=== PATIENT | female | born 1945 | race African-American/Black ===

== ENCOUNTER 2016-06-22 05:22 | Inpatient (IN) ==
[2016-06-03 14:15] LABS: Basophils % 0.7 % (0.0-0.8); Eosinophils # 0.1 10*3/uL (0.0-0.87); Eosinophils % 1.4 % (0.00-10.9); Hematocrit 44.3 VOL% (35.7-47.0); Immature Granulocytes % 0.2 %; Immature Granulocytes Absolute 0.01 #; Lymphocytes # 2.3 10*3/uL (1.4-4.0); Lymphocytes % 39.4 % (21.3-54.2); Mean Corpuscular HGB Conc 31.6 GM/DL (32-36); Mean Corpuscular Hemoglobin 28 PG (27-34); Mean Corpuscular Volume 87.2 FL (87-102); Mean Platelet Volume 11.2 FL (9.6-12.0); Monocytes # 0.4 10*3/uL (0.11-0.8); Monocytes % 7.5 % (1.7-12.7); Neutrophils # 2.9 10*3/uL (1.4-7.4); Neutrophils % 50.8 % (38.7-73.9); Platelet Count 143 10*3/uL (130-400); Red Blood Count 5.08 10*6/uL (3.8-5.5); Red Cell Distribution Width 14.3 % (9.3-17.3); White Blood Count 5.7 10*3/uL (4.5-13.71)
[2016-06-03 14:30] LABS: PT Patient Result 10.5 SECS; Partial Thromboplastin Time 27.3 SECS (0-40)
--- NOTE | 2016-06-03 14:50 | XRay Report ---
XR chest 2V Indication: Preop respiratory evaluation. Chest 2 views: Comparison 08/13/2013. Thoracic aortic tortuosity is stable. Heart size remains normal. Lungs are clear. Degenerative changes thoracic spine are stable. Impression: No acute cardio pulmonary disease. Chronic findings described above. PROCEDURE INTERPRETED AT [facility] DEPARTMENT OF RADIOLOGY Final Report Signed by: Jose C Kessler M.D.
[2016-06-03 14:55] LABS: Albumin 3.9 G/DL (3.4-5.0); Bilirubin,Total 0.4 MG/DL (0.2-1.0); Calcium 11.6 MG/DL (8.5-10.1); Osmolality,Calculated 291.6 MOS/KG (273-304); Total Protein 7.2 G/DL (6.4-8.3)
[2016-06-09 15:55] LABS: Apearance,Urine Slightly Hazy (Clear); Bilirubin,Urine Negative (Negative); Blood, Urine Moderate mg/dL (Negative); Glucose,Urine (UA) Negative (Negative); Ketones,Urine Negative (Negative); Mucus,Urine Occasional /LPF (Occasional); Nitrite,Urine Negative (Negative); Protein,Urine Negative; RBC,Urine 22 /HPF (0-4); Squamous Epithelial Cell,Urine Occasional /HPF (0-10); Urine Color Yellow (Yellow); Urine Urobilinogen < 2.0 EU/DL (0.2-1.0); WBC,Urine 5 /HPF (0-6)
[2016-06-22] MEDS ORDERED: VANCOMYCIN 1,000 MG VIAL ONE (06:23)
[2016-06-22] MEDS ORDERED: SODIUM CHLORIDE 0.9% 100 ML IV ONE (06:23)
[2016-06-22] MEDS ORDERED: ceFAZolin 1,000 MG VIAL ONE (06:23)
--- NOTE | 2016-06-22 06:36 | History and Physical Update ---
History and Physical Update - History and Physical H&P was reviewed, the patient examined and there: are no changes in the patients condition since last H&P was completed.
[2016-06-22] MEDS: LACTATED RINGERS 1,000 ML IV SCH ×3 (06:39→22:08)
[2016-06-22] MEDS ORDERED: VANCOMYCIN INJ 1,000 MG in SODIUM CHLORIDE 0.9% 250 ML IV ONE (06:54)
[2016-06-22] MEDS ORDERED: TRANEXAMIC ACID 1,000 MG/10 ML VIAL IV ONE (06:57)
[2016-06-22] MEDS ORDERED: LIDOCAINE 2% 5 ML VIAL ONE (07:00)
[2016-06-22] MEDS ORDERED: LABETALOL 100 MG/20 ML VIAL IV ONE (07:00)
[2016-06-22] MEDS ORDERED: DEXAMETHASONE 4 MG/1 ML VIAL ONE (07:00)
[2016-06-22] MEDS ORDERED: BACITRACIN OINT 0.9 GM PACK TOP ONE (08:23)
[2016-06-22] MEDS ORDERED: ROPIVACAINE 0.5% 30 ML VIAL ONE (08:42)
[2016-06-22] MEDS ORDERED: oxyCODONE IR 5 MG TABLET PO PRN (08:44)
[2016-06-22] MEDS ORDERED: MORPHINE 2 MG/1 ML SYRINGE IV PRN ×2 (08:44)
--- NOTE | 2016-06-22 08:49 | Operative Note ---
Date of procedure: 06/22/16 Procedure: DIAGNOSIS: Left knee primary osteoarthrosis PROCEDURE: Left total knee arthroplasty (cpt #81176) SURGEON: Gilmar MARKETING SYSTEMS MANAGER: April ANESTHESIA: Spinal with a postoperative femoral nerve block PROCEDURE and FINDINGS: After adequate was induced, the patient's knee was prepped and draped in the usual sterile fashion. The limb was exsanguinated with Esmarch. Tourniquet was inflated to 300 mmHg. A median parapatellar approach was made. Femur was cut using an intramedullary guide and a 4 in 1 cutting jig in 5 degrees of valgus. ACL and menisci were excised. Tibia was cut using intramedullary guide. Patella was cut using freehand technique. Components were trialed. Tibial fin was prepared. Components are cemented in place using Palacos cement and modern cementing techniques. Cement was removed. A 1/8 inch Hemovac drain was placed. The knee was well-balanced and full range of motion with central tracking patella. Deep layers closed with 0-0 Vicryl. Superficial layers were closed with 2-0 and 3-0 Vicryl. Skin was approximated with omar. Bacitracin and a sterile dressing was applied. Patient was transferred to recovery. A postoperative femoral nerve block is anticipated. COMPONENTS: The Gael Persona system was used. 8 CR narrow femur, E natural tibia, 10 mm liner, 35 mm patella TOURNIQUET TIME: 51 minutes Surgeon / Physician: Rahul Schafer Jr. Results - Labs CBC & BMP: 06/03/16 14:06 06/03/16 14:06 Discharge Plan - Discharge Medications No Action Pravastatin [Pravachol] 40 mg PO DAILY Potassium Chloride [K-Tab ER] 20 meq PO DAILY Lisinopril 20 mg PO DAILY Gabapentin Cap/Tab [Neurontin Cap/Tab] 300 mg PO BEDTIME Furosemide Tab [Lasix Tab] 20 mg PO DAILY amLODIPine [Norvasc] 10 mg PO DAILY Cholecalciferol (Vitamin D3) [Vitamin D3] 1,000 unit PO DAILY Levothyroxine Tab [Synthroid Tab] 88 mcg PO DAILY Allopurinol 300 mg PO DAILY - Follow Up or Referral - Forms/Instructions
--- NOTE | 2016-06-22 09:17 | XRay Report ---
XR knee 2V LT Indication: Arthroplasty Comparison: None available Findings: Left knee arthroplasty is been performed. Components alignment and positioning appear within normal limits. No periprosthetic fracture seen. Drain and surgical changes are present on the soft tissues anteriorly. Impression: Left knee arthroplasty, appears within normal limits postoperatively. PROCEDURE INTERPRETED AT [facility] DEPARTMENT OF RADIOLOGY Final Report Signed by: Dr. Leonid Mo
[2016-06-22] MEDS: LEVOTHYROXINE 88 MCG TABLET PO SCH (12:10)
[2016-06-22] MEDS: DOCUSATE SODIUM 100 MG CAPSULE PO SCH ×2 (12:10→21:58)
[2016-06-22] MEDS: FUROSEMIDE 20 MG TABLET PO SCH (12:10)
[2016-06-22] MEDS: amLODIPine 10 MG TABLET PO SCH (12:11)
[2016-06-22] MEDS: LISINOPRIL 20 MG TABLET PO SCH (12:11)
[2016-06-22] MEDS: POTASSIUM CHLORIDE 20 MEQ TABLET PO SCH (12:12)
[2016-06-22] MEDS: KETOROLAC 15 MG/1 ML VIAL IV SCH ×3 (12:12→22:00)
[2016-06-22] MEDS: PRAVASTATIN 40 MG TABLET PO SCH (12:12)
[2016-06-22] MEDS: ALLOPURINOL 300 MG TABLET PO SCH (12:12)
[2016-06-22] MEDS: CHOLECALCIFEROL 1,000 UNIT TABLET PO SCH (12:13)
[2016-06-22] MEDS: ceFAZolin 2,000 MG in PREMIX 1 EACH IV SCH ×2 (14:22→21:58)
[2016-06-22] MEDS: ACETAMINOPHEN 500 MG TABLET PO SCH ×2 (14:22→19:03)
[2016-06-22] MEDS ORDERED: fentaNYL 100 MCG/2 ML VIAL ONE (14:29)
[2016-06-22] MEDS ORDERED: KETAMINE 500 MG/10 ML VIAL ONE (14:29)
[2016-06-22] MEDS ORDERED: MIDAZOLAM 2 MG/2 ML VIAL ONE (14:29)
--- NOTE | 2016-06-22 17:59 | Orthopedic Progress Note ---
Orthopedics - Subjective Interval history: Comfortable post op. She's sitting in chair. NV ok to foot and ankle. continue per protocol. Exam - Constitutional Vitals: Period Temp Pulse Resp BP Sys/Wilson Pulse Ox Last 24 Hr 97 F-98.6 F 55-72 16-20 121-183/76-104 95-99 Results - Labs CBC & BMP: 06/03/16 14:06 06/03/16 14:06
--- NOTE | 2016-06-22 18:47 | Cardiology Consult Note ---
Pernell Kearney Vanessa, RN, am scribing for, and in the presence of, Jose C Guzmán MD 18:47. Assessment and Plan - Time spent with patient Time spent with patient: Greater than 30 minutes (due to assessment, planning, documentation) (1) Status post total knee replacement, left Status: Acute Assessment and plan: Uneventful operation. This is being managed by orthopedic surgery. Current Visit: Yes (2) Abnormal EKG Status: Acute Assessment and plan: Previous EKG with PVC's, PAC's. Will obtain 12 lead EKG in the morning for review. Monitor electrolytes. Current Visit: Yes (3) Hypertension Status: Chronic Assessment and plan: Fairly stable at this time. Amlodipine and lisinopril have been continued post operatively. Some of her hypertension most certainly could be related to pain from surgical site. Current Visit: Yes (4) Hypothyroidism Status: Acute Assessment and plan: Levothyroxine continued postoperatively. Current Visit: Yes (5) Hypercholesterolemia Status: Acute Assessment and plan: Pravastatin has been continued postoperatively. Current Visit: Yes (6) Obesity Status: Acute Current Visit: Yes History of Present Illness - Data of Consult Patient: known to practice within the last 3 years Consult date: 06/22/16 Requesting Physician: Rahul Schafer Jr. - Consult Narrative History of present illness: Ms. Guy is a 71 year old black female routinely followed by me in clinic. PMHx includes HTN, hypothyroidism, hypercholesterolemia, LVH, gout, obesity, osteoarthritis. She was last seen in clinic on June 03 for cardiac clearance prior to left knee surgery. At that time, she did not have any anginal complaint, symptoms, or previous cardiac history. Patient's activity has been limited, she is generally inactive, and she does not exert herself significantly. EKG abnormal and most consistent with PVC's, PAC's, nonspecific ST-T changes, and some LVH. Because of her risk factors for coronary artery disease and abnormal EKG, Lexican stress test completed prior to clearance. Scan revealed normal perfusion with no ST segment changes consistent with ischemia, LV ejection fraction 58% with normal LV global function. Total left knee replacement was carried out earlier this morning. It was uneventful. We have now been consulted postoperatively for cardiac management. Slightly hypertensive prior to surgery and in PACU. Current blood pressure 146/ 92. Heart rate 60's and regular, occasional palpitation per radial pulse. She is awake and alert, only complaint of pain is related to surgical site. Left lower extremity with sterile dressing in place, hemovac noted with serous drainage, extremity with coolant in place. Distal pulses 2+, palpable bilaterally, good capillary refill, and she is able to wiggle toes. No chest pain, shortness of breath, orthopnea, presyncope, or other cardiac complaint. Home medications continued postoperatively include lisinopril, amlodipine, furosemide, pravastatin, and levothyroxine. Receiving Arixtra injections for anticoagulation. CC: Rahul Schafer Jr., - Home Medications and Allergies Home Medications: Home Medications Medication Instructions Recorded Confirmed Type Allopurinol 300 mg PO DAILY 06/03/16 06/22/16 History Cholecalciferol (Vitamin D3) 1,000 unit PO DAILY 06/03/16 06/22/16 History [Vitamin D3] Furosemide Tab [Lasix Tab] 20 mg PO DAILY 06/03/16 06/22/16 History Gabapentin Cap/Tab [Neurontin 300 mg PO BEDTIME 06/03/16 06/22/16 History Cap/Tab] Levothyroxine Tab [Synthroid Tab] 88 mcg PO DAILY 06/03/16 06/22/16 History Lisinopril 20 mg PO DAILY 06/03/16 06/22/16 History Potassium Chloride [K-Tab ER] 20 meq PO DAILY 06/03/16 06/22/16 History Pravastatin [Pravachol] 40 mg PO DAILY 06/03/16 06/22/16 History amLODIPine [Norvasc] 10 mg PO DAILY 06/03/16 06/22/16 History Allergies/Adverse Reactions: Allergies Allergy/AdvReac Type Severity Reaction Status Date / Time No Known Allergies Allergy Verified 06/22/16 06:15 - Constitutional Constitutional: Present: weakness. Absent: anorexia, chills, daytime sleepiness , excessive sweating, fatigue, fever(s), frequent falls, stops breathing during sleep, weight gain, weight loss - EENT Eyes: Absent: blurry vision, loss of vision Ears: Absent: decreased hearing Nose, mouth and throat: Present: sinus pressure. Absent: dysphagia, epistaxis, lip swelling, throat swelling, tongue swelling, vertigo - Cardiovascular Cardiovascular: Absent: chest pain at rest, chest pain with activity, diaphoresis, dyspnea, dyspnea on exertion, edema, radiating jaw, neck or arm pain, lightheadedness, orthopnea, palpitations, PND - Respiratory Respiratory: Absent: cough, dyspnea, hemoptysis, dyspnea on exertion, wheezing, change in phlegm color - Gastrointestinal Gastrointestinal: Absent: abdominal pain, change in bowel habits, dysphagia, melena, nausea, vomiting, jaundice - Genitourinary Genitourinary: Absent: hematuria - Musculoskeletal Musculoskeletal: Present: back pain, limited range of motion - Neurological Neurological: Absent: abnormal speech, dizziness, numbness, syncope, tremor(s) - Psychiatric Psychiatric: Absent: anxiety, depression - Endocrine Endocrine: Absent: cold intolerance, heat intolerance - Hematologic/Lymphatic Hematologic/Lymphatic: Absent: easy bleeding, easy bruising Medical,Surgical,& Family Hx - Medical History Cardio: History of: Hypertension, Cardiovascular Problems (cardiomegaly) No history of: Cardiac Dysrhythmia, CHF, IN Psychological: No history of: Anxiety Disorders Neurology: History of: Peripheral Neuropathy (FEET AND HANDS) No history of: Dementia, Seizures, TIA HEENT: History of: Eye Problem (GLASSES), Dental Problems (UPPER DENTURE), HEENT Problems (SINUSITIS) Endocrine: History of: Dyslipidemia, Thyroid Disorder (hypothyroidism) No history of: Diabetes Mellitus (IDDM), Diabetes Mellitus (NIDDM) Rheumatology: History of;: Gout, Rheumatoid Arthritis Respiratory: No history of: Asthma, COPD, Obstructive Sleep Apnea, Pulmonary Embolism, Pulmonary Hypertension, Pneumonia Renal: No history of: Renal Failure Gastrointestinal: History of: GERD, Polyps (REMOVED) No history of: Hepatitis Musculoskeletal: History of: Back/Neck Problems (NECK AND BACK PAINS), Osteoporosis, Musculoskeletal Problems (LT KNEE OA) Hematology: No history of: Anemia, Blood Transfusion Reaction, Bleeding Problems, Clotting Problems Other: No history of: Cancer - Surgical History Cardiac Surgeries: Patient Denies: Cardiac Catheterization, Carotid Endarterectomy, Internal Defibrillator HEENT Surgeries: Surgical HX of: Thyroid Surgery (PARTIAL THYROIDECTOMY 10 YRS AGO; GOITER REMOVED 30 YRS AGO.) Abdominal Surgeries: Surgical HX of: Colonoscopy (2016) Reproductive Surgeries: Surgical HX of;: Breast Surgery (RT BREAST BX), Tubal Ligation Orthopedic Surgeries: Surgical HX of;: Total Knee Replacement (right knee; now s /p total left knee ) - Family History Family History: Reports;: Family Cancer (BROTHER, 2 SISTERS BREAST, 1 SISTER GI CANCER), Family Diabetes (SISTER), Family Heart Disease (BROTHER), Family Hypertension (SIBLINGS), Family Stroke (MOTHER, 3 SISTERS) - Social History Smoking Status: Never smoker Frequency of Alcohol Use: None Type of Drug Use: None Marital Status: Lives With:: Spouse Functional capacity: uses cane/walker Physical Examination Vital Signs Temp Pulse Resp BP Pulse Ox 98.6 F 69 18 165/92 95 06/22/16 06:16 06/22/16 06:16 06/22/16 06:16 06/22/16 06:16 06/22/16 06:16 General: Present: Appears Well, No Apparent Distress, Other (obese) HEENT: Present: PERRL, Mucus Membranes Moist. Absent: Jaundice, Pallor Neck: Present: Supple Neck, Midline Trachea, No JVD/HJR, No Masses, No Bruit Cardiac: Present: Reg Rate and Rhythm, No Murmur. Absent: Gallop, Tachycardia Lungs: Present: Normal Exam, Clear Ascult./Percussion, Oxygen (2L/NC), No Wheeze , Rales, Rhonchi Neuro: Present: Grossly Intact. Absent: Numbness, Resting Tremor Abdomen: Present: Soft, Active Bowel Sounds, No Masses. Absent: Ascites, Tender , Firm Skin: Absent: Rash, Ulceration Musculoskeletal: Present: Decreased Range of Motion Extremities: Present: No Clubbing, No Cyanosis, No Edema, Normal Upper Extr. Pulses (2+ bilaterally), Normal Lower Extr. Pulses (2+ bilaterally), Capillary Refill (normal) Result/EKG - Labs CBC & BMP: 06/03/16 14:06 06/03/16 14:06 Lab Results: I have reviewed the past 24 hour labs Labs: Laboratory Results - last 24 hr 06/22/16 06:18 Blood Type O POSITIVE Antibody Screen Negative No labs available today. Reviewed blood work from June 03 and UA results from June 09 - Diagnostic Findings Procedure: Chest x-ray: report reviewed by me, image reviewed by me (06/22 no acute cardiopulmonary disease. degenerative changes thoracic spine, stable) - EKG EKG results: interpreted by me EKG shows: sinus rhythm IRamirez John Timothy, MD, personally performed the services described in this documentation, ascribed by Arlet Gimenez RN in my presence, and it is both accurate and complete .
[2016-06-22] MEDS: GABAPENTIN 300 MG CAPSULE PO SCH (21:58)
[2016-06-23] MEDS: LACTATED RINGERS 1,000 ML IV SCH ×2 (00:46→17:39)
[2016-06-23] MEDS: ACETAMINOPHEN 500 MG TABLET PO SCH ×2 (00:46→06:21)
[2016-06-23] MEDS: KETOROLAC 15 MG/1 ML VIAL IV SCH (02:15)
[2016-06-23] MEDS: FONDAPARINUX 2.5 MG/0.5 ML SYRINGE SUBCUT SCH (02:17)
[2016-06-23 06:17] LABS: Basophils % 0.1 % (0.0-0.8); Hematocrit 32.2 VOL% (35.7-47.0); Hemoglobin 10.6 GM/DL (12.0-16.0); Immature Granulocytes % 0.4 %; Immature Granulocytes Absolute 0.04 #; Lymphocytes # 1.7 10*3/uL (1.4-4.0); Lymphocytes % 16.1 % (21.3-54.2); Mean Corpuscular HGB Conc 32.9 GM/DL (32-36); Mean Corpuscular Hemoglobin 28 PG (27-34); Mean Corpuscular Volume 84.1 FL (87-102); Mean Platelet Volume 11.2 FL (9.6-12.0); Monocytes # 1.2 10*3/uL (0.11-0.8); Neutrophils # 7.7 10*3/uL (1.4-7.4); Neutrophils % 72.4 % (38.7-73.9); Platelet Count 197 T/CUMM (130-400); Red Blood Count 3.83 MC/CUMM (3.8-5.5); Red Cell Distribution Width 14.5 % (9.3-17.3); White Blood Count 10.7 T/CUMM (4-12)
[2016-06-23] MEDS: LEVOTHYROXINE 88 MCG TABLET PO SCH (06:20)
--- NOTE | 2016-06-23 06:46 | EKG Report ---
Stationary ECG Study [facility] Test Date: 06/23/2016 6:45:39 AM Pat Name: MADINA NEUMANN Department: Room: 317 Gender: F Project Manager Interior Design: LIO : 1945 Requested by: Jose C Padilla Order Number: [id number] Reading MD: REZA ROLDAN Intervals Ramona Rate: 62 P: 13 IN: 210 QRS: -7 QRSD: 102 T: -14 QT: 368 QTc: 372 Interpretive Statements SINUS RHYTHM WITH MINIMALLY PROLONGED IN INTERVAL VOLTAGE CRITERIA FOR LVH AND REPOLARIZATION ABNORMALITIES Electronically Signed On 06-23-16 12:48:12 PICKLE PUMPER by REZA ROLDAN [email or web address]
[2016-06-23 06:57] LABS: Calcium 10.2 MG/DL (8.5-10.1); Osmolality,Calculated 287.8 MOS/KG (273-304); Potassium 3.6 MMOL/L (3.5-5.1)
[2016-06-23] MEDS ORDERED: ACETAMINOPHEN 325 MG TABLET PO PRN (08:45)
[2016-06-23] MEDS: POTASSIUM CHLORIDE 20 MEQ TABLET PO SCH (09:48)
[2016-06-23] MEDS: DOCUSATE SODIUM 100 MG CAPSULE PO SCH ×2 (09:48→20:05)
[2016-06-23] MEDS: ALLOPURINOL 300 MG TABLET PO SCH (09:49)
[2016-06-23] MEDS: FUROSEMIDE 20 MG TABLET PO SCH (09:49)
[2016-06-23] MEDS: amLODIPine 10 MG TABLET PO SCH (09:49)
[2016-06-23] MEDS: LISINOPRIL 20 MG TABLET PO SCH (09:49)
[2016-06-23] MEDS: CHOLECALCIFEROL 1,000 UNIT TABLET PO SCH (09:49)
[2016-06-23] MEDS: PRAVASTATIN 40 MG TABLET PO SCH (09:49)
--- NOTE | 2016-06-23 11:22 | Cardiology Progress Note ---
Pernell Kearney Vanessa, RN, am scribing for, and in the presence of, Jose C Guzmán MD 11:20. Assessment and Plan - Time spent with patient Time spent with patient: Less than 30 minutes (1) Status post total knee replacement, left Status: Acute Assessment and plan: POD #1. This is being managed by orthopedic surgery. From a cardiac standpoint she's doing well. Current Visit: Yes (2) Abnormal EKG Status: Chronic Assessment and plan: Previous EKG with PVC's, PAC's. Monitor electrolytes. 12 lead EKG obtained this morning reveals sinus rhythm with no acute changes, minimal to no PVC, PAC. This is stable. Current Visit: Yes (3) Hypertension Status: Chronic Assessment and plan: Blood pressures improved today. Continue current medication regimen. Currently pain free. Current Visit: Yes (4) Hypothyroidism Status: Chronic Assessment and plan: Continue levothyroxine. Current Visit: Yes (5) Hypercholesterolemia Status: Chronic Assessment and plan: Continue pravastatin. Current Visit: Yes (6) Obesity Status: Chronic Assessment and plan: Weight loss be a good benefit for the patient in multiple medical issues. Current Visit: Yes Cardiology - PN: Subj Interval history: Post op day #1 s/p total left knee replacemenent. Awake and alert this morning sitting up in chair. No acute distress noted. Denies chest pain, dyspnea, palpitation, presyncope, or other. Left lower leg wrapped with dressing. Hemovac in place. Denies current discomfort at surgical site. Afebrile, blood pressures overall stable with SBP 115-130 mmHg range, pulse 60's and regular. 12 lead EKG this morning revealed no acute change from prior EKG, sinus rhythm, heart rate 62. Generally she continues to do well clinically from her surgery. Labs reviewed: WBC 10.7, H/H 10.6 & 32.2 (decrease from 06/03/16 noted), sodium 144, potassium 3.6, creatinine 0.9, glucose 125 Exam (Progress Note) - Constitutional Vitals: Period Temp Pulse Resp BP Sys/Wilson Pulse Ox Last 24 Hr 97 F-99.5 F 55-72 16-20 108-160/69-97 95-99 Exam: General: Present: Appears Well, No Apparent Distress, Other (obese) HEENT: Present: PERRL, Mucus Membranes Moist. Absent: Jaundice, Pallor Neck: Present: Supple Neck, Midline Trachea, No JVD/HJR, No Masses, No Bruit Cardiac: Present: Reg Rate and Rhythm, No Murmur. Absent: Gallop, Tachycardia Lungs: Present: Normal Exam, Clear Ascult./Percussion, No Wheeze, Rales, Rhonchi anteriorly Neuro: Present: Grossly Intact. Absent: Numbness, Resting Tremor Abdomen: Present: Soft, Active Bowel Sounds, No Masses. Absent: Ascites, Tender , Firm Skin: Present: warm, dry. Absent: Rash, Ulceration, cyanosis, diaphoresis Musculoskeletal: Present: Decreased Range of Motion post left knee surgery Extremities: Present: No Clubbing, No Cyanosis, No Edema, Normal Upper Extr. Pulses (2+ bilaterally), Normal Lower Extr. Pulses (2+ bilaterally), Capillary Refill (normal) Other: left lower extremity with sx dsg intact, hemovac in place Result/EKG - Labs CBC & BMP: 06/23/16 05:25 06/23/16 05:25 Lab Results: I have reviewed the past 24 hour labs Labs: Laboratory Results - last 24 hr 06/23/16 06/23/16 05:25 05:25 WBC 10.7 RBC 3.83 Hgb 10.6 L Hct 32.2 L MCV 84.1 L MCH 28 MCHC 32.9 RDW 14.5 Plt Count 197 MPV 11.2 Neut % (Auto) 72.4 Lymph % (Auto) 16.1 L [place] % (Auto) 11.0 Eos % (Auto) 0.0 Baso % (Auto) 0.1 Neut # (Auto) 7.7 H Lymph # (Auto) 1.7 [place] # (Auto) 1.2 H Eos # (Auto) 0.0 Baso # (Auto) 0.0 Immature Gran % 0.4 Nucleated RBC % 0.0 Immature Gran # 0.04 Nucleated RBCs # 0.00 Sodium 144 Potassium 3.6 Chloride 107 Carbon Dioxide 26 Anion Gap 14.6 BUN 15 Creatinine 0.90 GFR Calculation 84 BUN/Creatinine Ratio 16.00 Glucose 125 H Calculated Osmolality 287.8 Calcium 10.2 H - Impressions Impressions: ECG with sinus rhythm and left ventricular hypertrophy with ST-T and amount consistent with an unchanged from prior ECG. - EKG EKG results: interpreted by me, no acute changes EKG shows: sinus rhythm IRamirez John Timothy, MD, personally performed the services described in this documentation, ascribed by Arlet Gimenez RN in my presence, and it is both accurate and complete .
--- NOTE | 2016-06-23 11:43 | Pathology Report from [facility] ---
ACCESSION # : [id number] PATIENT NAME : Lauren Guy ORDERING DR : TAYO AZEVEDO MD CLINICAL HX: Left knee ostoearthritis POST-OP DX: Same SPECIMEN INFO: Left knee bone and tissue GROSS DESCRIPTION: The specimen is received fresh labeled "LAUREN GUY" consists of multiple fragments of bone, soft tissue, and cartilage measuring 13.0 x 5.5 cm in aggregate. The articular surface are focally degenerative. There is a subchondral eburnation seen. Software Sales Consultant sections are submitted in one cassette. DIAGNOSIS FOR LAUREN GUY: LEFT KNEE BONE AND TISSUE, TOTAL REPLACEMENT: Osteoarthritis. SERVICE DATE: 06/22/2016 REPORT DATE: 06/23/2016 PATHOLOGIST: Can Seay M.D. [facility]ITAL[facility]
[2016-06-23] MEDS: GABAPENTIN 300 MG CAPSULE PO SCH (20:05)
[2016-06-24] MEDS: FONDAPARINUX 2.5 MG/0.5 ML SYRINGE SUBCUT SCH (02:49)
[2016-06-24 05:17] LABS: Basophils % 0.2 % (0.0-0.8); Eosinophils % 0.4 % (0.00-10.9); Hematocrit 33.6 VOL% (35.7-47.0); Hemoglobin 10.8 GM/DL (12.0-16.0); Immature Granulocytes % 0.5 %; Immature Granulocytes Absolute 0.05 #; Lymphocytes # 2.9 10*3/uL (1.4-4.0); Lymphocytes % 30.1 % (21.3-54.2); Mean Corpuscular HGB Conc 32.1 GM/DL (32-36); Mean Corpuscular Hemoglobin 28 PG (27-34); Mean Corpuscular Volume 85.5 FL (87-102); Mean Platelet Volume 10.8 FL (9.6-12.0); Monocytes % 10.2 % (1.7-12.7); Neutrophils # 5.7 10*3/uL (1.4-7.4); Neutrophils % 58.6 % (38.7-73.9); Platelet Count 187 T/CUMM (130-400); Red Blood Count 3.93 MC/CUMM (3.8-5.5); Red Cell Distribution Width 14.4 % (9.3-17.3); White Blood Count 9.7 T/CUMM (4-12)
[2016-06-24] MEDS: LEVOTHYROXINE 88 MCG TABLET PO SCH (06:16)
--- NOTE | 2016-06-24 07:33 | Orthopedic Progress Note ---
Orthopedics - Subjective Interval history: Doing very well today. Knee more sore since block wore off. LLE nv ok. Continue therapy. Swing bed tomorrow. Exam - Constitutional Vitals: Period Temp Pulse Resp BP Sys/Wilson Pulse Ox Last 24 Hr 98.2 F-99.0 F 48-82 18-19 116-163/71-99 95-98 Results - Labs CBC & BMP: 06/24/16 05:04 06/23/16 05:25 Specialty Discharge - Follow Up or Referrals Follow up with: Rahul Schafer Jr., MD [Physician] -
[2016-06-24] MEDS: FUROSEMIDE 20 MG TABLET PO SCH (08:04)
[2016-06-24] MEDS: PRAVASTATIN 40 MG TABLET PO SCH (08:04)
[2016-06-24] MEDS: ALLOPURINOL 300 MG TABLET PO SCH (08:04)
[2016-06-24] MEDS: CHOLECALCIFEROL 1,000 UNIT TABLET PO SCH (08:05)
[2016-06-24] MEDS: DOCUSATE SODIUM 100 MG CAPSULE PO SCH ×2 (08:05→20:45)
[2016-06-24] MEDS: POTASSIUM CHLORIDE 20 MEQ TABLET PO SCH (08:05)
[2016-06-24] MEDS: LISINOPRIL 20 MG TABLET PO SCH (08:05)
[2016-06-24] MEDS: amLODIPine 10 MG TABLET PO SCH (08:05)
[2016-06-24] MEDS: MAGNESIUM HYDROXIDE SUSP 30 ML UDCUP PO PRN ×2 (08:14→20:46)
--- NOTE | 2016-06-24 09:39 | Cardiology Progress Note ---
Assessment and Plan (1) Status post total knee replacement, left Status: Acute Assessment and plan: She is doing well from a cardiac standpoint in this regard. Hopefully will be discharged tomorrow as the present plan is. Current Visit: Yes (2) Abnormal EKG Status: Chronic Assessment and plan: This is not been repeated and had been stable. Current Visit: Yes (3) Hypertension Status: Chronic Assessment and plan: Blood pressures generally unremarkable with the pressure being up and down. Current Visit: Yes (4) Hypothyroidism Status: Chronic Assessment and plan: Continue levothyroxine. Current Visit: Yes (5) Hypercholesterolemia Status: Chronic Assessment and plan: Continue pravastatin. Current Visit: Yes (6) Obesity Status: Chronic Assessment and plan: Weight loss be a good benefit for the patient in multiple medical issues. Current Visit: Yes Cardiology - PN: Subj Interval history: Patient this morning is doing well. She states her block is wearing off beginning having more pain in her left leg and knee. She does do well from a cardiac standpoint not having any palpitations or chest pain or shortness of breath. She states her appetite remains good. Reviewing her chart she's had no fever or chills. Her vital sign is stable with her blood pressure being up and down but unremarkable. Her lab work is stable as well and has been reviewed this morning. Her CBC was only thing that was done in stable. Plans apparently are still for her to be discharged tomorrow. Exam (Progress Note) - Constitutional Vitals: Period Temp Pulse Resp BP Sys/Wilson Pulse Ox Last 24 Hr 98.2 F-99.0 F 48-82 16-19 117-163/71-99 95-98 Exam: General: Present: Appears Well, No Apparent Distress, obese HEENT: Present: PERRL, atraumatic Neck: Present: Supple Neck, Midline Trachea, No JVD/HJR Cardiac: Present: Reg Rate and Rhythm, No Murmur gallop or rub. Lungs: Present: Normal Exam, Clear anteriorly to auscultation without Wheeze, Rales, Rhonchi Neuro: Present: Grossly Intact. Absent: Numbness, Resting Tremor Abdomen: Present: Soft, Active Bowel Sounds, nontender Skin: Present: warm, dry. Absent: Rash, Ulceration, cyanosis, diaphoresis Musculoskeletal: Present: Decreased Range of Motion post left knee surgery being postop Extremities: Present: Left knee is postop. She has no edema of either lower extremities. Result/EKG - Labs CBC & BMP: 06/24/16 05:04 06/23/16 05:25 Lab Results: I have reviewed the past 24 hour labs Labs: Laboratory Results - last 24 hr 06/24/16 05:04 WBC 9.7 RBC 3.93 Hgb 10.8 L Hct 33.6 L MCV 85.5 L MCH 28 MCHC 32.1 RDW 14.4 Plt Count 187 MPV 10.8 Neut % (Auto) 58.6 Lymph % (Auto) 30.1 [place] % (Auto) 10.2 Eos % (Auto) 0.4 Baso % (Auto) 0.2 Neut # (Auto) 5.7 Lymph # (Auto) 2.9 [place] # (Auto) 1.0 H Eos # (Auto) 0.0 Baso # (Auto) 0.0 Immature Gran % 0.5 Nucleated RBC % 0.0 Immature Gran # 0.05 Nucleated RBCs # 0.00 Specialty Discharge - Follow Up or Referrals Follow up with: Rahul Schafer Jr., MD [Physician] -
[2016-06-24] MEDS: GABAPENTIN 300 MG CAPSULE PO SCH (20:46)
[2016-06-25] MEDS: FONDAPARINUX 2.5 MG/0.5 ML SYRINGE SUBCUT SCH (03:42)
[2016-06-25 06:19] LABS: Basophils % 0.4 % (0.0-0.8); Eosinophils # 0.2 10*3/uL (0.0-0.87); Hematocrit 32.1 VOL% (35.7-47.0); Hemoglobin 10.4 GM/DL (12.0-16.0); Immature Granulocytes % 0.4 %; Immature Granulocytes Absolute 0.03 #; Lymphocytes % 36.2 % (21.3-54.2); Mean Corpuscular HGB Conc 32.4 GM/DL (32-36); Mean Corpuscular Hemoglobin 27 PG (27-34); Mean Corpuscular Volume 84.5 FL (87-102); Mean Platelet Volume 11.6 FL (9.6-12.0); Monocytes # 0.7 10*3/uL (0.11-0.8); Monocytes % 8.2 % (1.7-12.7); Neutrophils # 4.3 10*3/uL (1.4-7.4); Neutrophils % 52.8 % (38.7-73.9); Platelet Count 212 T/CUMM (130-400); Red Cell Distribution Width 14.5 % (9.3-17.3); White Blood Count 8.2 T/CUMM (4-12)
[2016-06-25] MEDS: MAGNESIUM HYDROXIDE SUSP 30 ML UDCUP PO PRN (06:49)
[2016-06-25] MEDS: LEVOTHYROXINE 88 MCG TABLET PO SCH (06:49)
--- NOTE | 2016-06-25 07:25 | Discharge Summary ---
Hospital Course - Hospital Course Hospital Course: Lauren Guy was admitted after undergoing an uncomplicated left total knee replacement. She received perioperative DVT and antimicrobial prophylaxis. She did well preoperatively. She was discharged to swing bed in stable condition. On the day of discharge, her dressings clean, dry and intact. She is neurovascularly unchanged. Specialty Discharge - Follow Up or Referrals Follow up with: Rahul Schafer Jr., MD [Physician] - Discharge Plan - Discharge Data Disposition: Disch/Xfer to Snf Condition at Discharge: Stable Discharge Diet: advance to your usual diet Hygiene: may shower Weight Bearing at Discharge: weight bear as tolerated Driving: not until seen by doctor - Discharge Medications New HYDROcodone/ACETAMIN 7.5-325 [Geneva 7.5-325] 1 tablet PO Q4H PRN #0 tablet PRN Reason: Pain Moderate (4-7) Docusate Sodium Cap [Colace Cap] 100 mg PO BID capsule Fondaparinux [Arixtra] 2.5 mg SUBCUT Q24H 10 Days HYDROcodone/ACETAMIN 7.5-325 [Geneva 7.5-325] 2 tablet PO Q4H PRN #0 tablet PRN Reason: Moderate Pain unrelieved by 1 Continue Pravastatin [Pravachol] 40 mg PO DAILY Potassium Chloride [K-Tab ER] 20 meq PO DAILY Lisinopril 20 mg PO DAILY Gabapentin Cap/Tab [Neurontin Cap/Tab] 300 mg PO BEDTIME Furosemide Tab [Lasix Tab] 20 mg PO DAILY amLODIPine [Norvasc] 10 mg PO DAILY Cholecalciferol (Vitamin D3) [Vitamin D3] 1,000 unit PO DAILY Levothyroxine Tab [Synthroid Tab] 88 mcg PO DAILY Allopurinol 300 mg PO DAILY - Follow Up or Referral Follow Up: Rahul Schafer Jr., MD [Physician] - - Forms/Instructions Additional Discharge Instructions: Daily dry dressing changes. Weightbearing as tolerated. CPM while at swing bed. Arrange walker and bedside commode for home use. Wear YUSRA hose for 1 month. Discontinue omar and Steri-Strip wound on 07/02/2016. Follow-up appointment in 4 weeks. Prescription for Geneva 7.5 with 30 tablets was written. Arixtra for 10 days at swing bed. Exam - Constitutional Vitals: Period Temp Pulse Resp BP Sys/Wilson Pulse Ox Last 24 Hr 98.4 F-99.7 F 52-94 15-18 102-169/66-93 94-100 Discharge Results Labs on day of discharge: Labs from last 24 hours 06/25/16 04:36 WBC 8.2 RBC 3.80 Hgb 10.4 L Hct 32.1 L MCV 84.5 L MCH 27 MCHC 32.4 RDW 14.5 Plt Count 212 MPV 11.6 Neut % (Auto) 52.8 Lymph % (Auto) 36.2 Jasper % (Auto) 8.2 Eos % (Auto) 2.0 Baso % (Auto) 0.4 Neut # (Auto) 4.3 Lymph # (Auto) 3.0 Jasper # (Auto) 0.7 Eos # (Auto) 0.2 Baso # (Auto) 0.0 Immature Gran % 0.4 Nucleated RBC % 0.0 Immature Gran # 0.03 Nucleated RBCs # 0.00 DS: Provider Date of admission: 06/22/16 05:22 Primary care physician: . No PCP Attending physician on admission: Rahul Schafer Jr., Consults: 06/22/16 08:44 Consult to Case Mgmt/Social Srvs [CONS] Routine Reason for Case Mgmt/Social Srvs: Rehab Home Health Equipment Consult Comment: Bedside Commode, CPM, Walker Consult to Occupational Therapy [CONS] Routine Reason for Occupational Therapy: Evaluate and Treat Consult Comment: ADL's Consult to Physical Therapy [CONS] Routine Reason for Physical Therapy: Evaluate and Treat Gait Training Start Therapy: Today 06/22/16 10:19 Consult to Physician [CONS] Routine Comment: Consulting Provider: Jose C Guzmán Consulting Provider Notified: Yes When should Consulting Provider be notified: Now Person Notified: kennedy [email or web address] Date Notified: 06/22/16 Time Notified: 10:20 06/22/16 11:19 Consult to Pharmacy [CONS] Routine Reason for Pharmacy Consult: Adjust Meds Renal Funct Discharging clinician: Rahul Schafer Jr., Expected date of discharge: 06/25/16
[2016-06-25] MEDS: POTASSIUM CHLORIDE 20 MEQ TABLET PO SCH (09:14)
[2016-06-25] MEDS: DOCUSATE SODIUM 100 MG CAPSULE PO SCH (09:14)
[2016-06-25] MEDS: FUROSEMIDE 20 MG TABLET PO SCH (09:14)
[2016-06-25] MEDS: amLODIPine 10 MG TABLET PO SCH (09:15)
[2016-06-25] MEDS: LISINOPRIL 20 MG TABLET PO SCH (09:15)
[2016-06-25] MEDS: CHOLECALCIFEROL 1,000 UNIT TABLET PO SCH (09:15)
[2016-06-25] MEDS: ALLOPURINOL 300 MG TABLET PO SCH (09:15)
[2016-06-25] MEDS: PRAVASTATIN 40 MG TABLET PO SCH (09:15)
[2016-06-25] MEDS ORDERED: BISACODYL 10 MG SUPP RECTAL ONE (09:19)
--- NOTE | 2016-06-25 12:04 | Cardiology Progress Note ---
Assessment and Plan (1) Status post total knee replacement, left Status: Acute Assessment and plan: She is doing well from a cardiac standpoint in this regard. Being discharged to rehabilitation. Current Visit: Yes (2) Abnormal EKG Status: Chronic Assessment and plan: This is not been repeated and had been stable. This is a chronic finding. Current Visit: Yes (3) Hypertension Status: Chronic Assessment and plan: Blood pressures generally unremarkable and stable at this time. Current Visit: Yes (4) Hypothyroidism Status: Chronic Assessment and plan: Continue levothyroxine. Current Visit: Yes (5) Hypercholesterolemia Status: Chronic Assessment and plan: Continue pravastatin. Current Visit: Yes (6) Obesity Status: Chronic Assessment and plan: Weight loss be a good benefit for the patient in multiple medical issues. Current Visit: Yes Cardiology - PN: Subj Interval history: Patient is doing well post-left knee surgery. She is having no chronic complaints of chest pain shortness of breath or other symptomology. She has good appetite. Her vital signs remained stable. She is going to a rehabilitation for a few days. She is stable to do so. Exam (Progress Note) - Constitutional Vitals: Period Temp Pulse Resp BP Sys/Wilson Pulse Ox Last 24 Hr 98.7 F-99.7 F 52-94 17-18 102-169/70-93 94-100 Exam: General: Present: Appears Well, No Apparent Distress, obese HEENT: Present: PERRL, atraumatic Neck: Present: Supple Neck, Midline Trachea, No JVD/HJR Cardiac: Present: Reg Rate and Rhythm, No Murmur gallop or rub. Radial pulses are 2+. Lungs: Present: Normal Exam, Clear anteriorly and laterally to auscultation without Wheeze, Rales, Rhonchi Neuro: Present: Grossly Intact. Absent: Numbness, Resting Tremor Abdomen: Present: Soft, Active Bowel Sounds, nontender Skin: Present: warm, dry. Absent: Rash, Ulceration, cyanosis, diaphoresis Musculoskeletal: Present: left knee surgery being postop. No edema Extremities: Present: Left knee is postop. She has no edema of either lower extremities. Result/EKG - Labs CBC & BMP: 06/25/16 04:36 06/23/16 05:25 Lab Results: I have reviewed the past 24 hour labs Labs: Laboratory Results - last 24 hr 06/25/16 04:36 WBC 8.2 RBC 3.80 Hgb 10.4 L Hct 32.1 L MCV 84.5 L MCH 27 MCHC 32.4 RDW 14.5 Plt Count 212 MPV 11.6 Neut % (Auto) 52.8 Lymph % (Auto) 36.2 Brooke % (Auto) 8.2 Eos % (Auto) 2.0 Baso % (Auto) 0.4 Neut # (Auto) 4.3 Lymph # (Auto) 3.0 Brooke # (Auto) 0.7 Eos # (Auto) 0.2 Baso # (Auto) 0.0 Immature Gran % 0.4 Nucleated RBC % 0.0 Immature Gran # 0.03 Nucleated RBCs # 0.00 Specialty Discharge - Follow Up or Referrals Follow up with: Rahul Schafer Jr., MD [Physician] - 07/22/16 8:45 am
[2016-06-25 12:33] VITALS: BP 138/74
[2016-07-02] MEDS ORDERED: VANCOMYCIN INJ 1,000 MG in SODIUM CHLORIDE 0.9% 250 ML IV ONE (06:00)
== END 2016-06-25 13:30 | DRG 470 ==
LOC: N.SDSINP 05:22 → N.3E 10:11
PROVIDERS: ADMIT Orthopaedic Surgery; ATTEND Orthopaedic Surgery

== ENCOUNTER 2017-06-15 05:57 | Inpatient (IN) ==
[2017-06-14 11:39] LABS: Basophils % 0.2 % (0.0-0.8); Eosinophils # 0.2 10*3/uL (0.0-0.87); Eosinophils % 3.4 % (0.00-10.9); Hemoglobin 11.1 GM/DL (12.0-16.0); Immature Granulocytes % 0.4 %; Immature Granulocytes Absolute 0.02 #; Lymphocytes # 2.5 10*3/uL (1.4-4.0); Lymphocytes % 44.8 % (21.3-54.2); Mean Corpuscular HGB Conc 32.6 GM/DL (32-36); Mean Corpuscular Hemoglobin 30 PG (27-34); Mean Corpuscular Volume 92.6 FL (87-102); Mean Platelet Volume 9.5 FL (9.6-12.0); Monocytes # 0.5 10*3/uL (0.11-0.8); Monocytes % 8.5 % (1.7-12.7); Neutrophils # 2.4 10*3/uL (1.4-7.4); Neutrophils % 42.7 % (38.7-73.9); Platelet Count 221 T/CUMM (130-400); Red Blood Count 3.67 MC/CUMM (3.8-5.5); Red Cell Distribution Width 18.6 % (9.3-17.3); White Blood Count 5.6 T/CUMM (4-12)
[2017-06-14 11:49] LABS: PT Patient Result 10.4 SECS
[2017-06-14 12:18] LABS: Albumin 3.7 G/DL (3.4-5.0); Bilirubin,Total 0.4 MG/DL (0.2-1.0); Calcium 11.5 MG/DL (8.5-10.1); Osmolality,Calculated 281.3 MOS/KG (273-304); Potassium 3.6 MMOL/L (3.5-5.1); Total Protein 6.8 G/DL (6.4-8.3)
[2017-06-15] MEDS ORDERED: BUPIVACAINE 0.25% 50 ML VIAL ONE (08:25)
[2017-06-15] MEDS ORDERED: ISOSULFAN BLUE 5 ML VIAL SUBCUT ONE (08:25)
[2017-06-15] MEDS: LACTATED RINGERS 1,000 ML IV SCH (08:42)
[2017-06-15] MEDS ORDERED: ceFAZolin 2,000 MG in PREMIX 1 EACH IV ONE (09:00)
[2017-06-15] MEDS ORDERED: ALUMINUM/MAGNES/SIMETH MAX STR 30 ML UDCUP PO PRN (09:07)
[2017-06-15] MEDS ORDERED: ACETAMINOPHEN 325 MG TABLET PO PRN (09:07)
[2017-06-15] MEDS ORDERED: HYDROmorphone 2 MG/1 ML VIAL IV PRN (09:07)
[2017-06-15] MEDS ORDERED: ONDANSETRON 4 MG/2 ML VIAL IV PRN (09:07)
[2017-06-15] MEDS: oxyCODONE/ACETAMINOPHEN 5-325 MG TABLET PO PRN (12:26)
[2017-06-15 12:28] LABS: Troponin I Only < 0.015 NG/ML (0.00-0.045)
[2017-06-15] MEDS: DEXTROSE 5% NACL 0.45% 1,000 ML IV SCH (12:29)
[2017-06-15] MEDS ORDERED: ASPIRIN 325 MG TABLET PO ONE (13:41)
[2017-06-15] MEDS ORDERED: MAGNESIUM SULF RIDER 2 GM in PREMIX 1 EACH IV PRN (15:37)
[2017-06-15] MEDS ORDERED: ENOXAPARIN 80 MG/0.8 ML SYRINGE SUBCUT ONE (16:00)
[2017-06-15 16:31] LABS: Troponin I Only < 0.015 NG/ML (0.00-0.045)
[2017-06-15 17:59] LABS: Troponin I Only < 0.015 NG/ML (0.00-0.045)
[2017-06-15] MEDS: CARVEDILOL 3.125 MG TABLET PO SCH (21:50)
[2017-06-15] MEDS: PRAVASTATIN 20 MG TABLET PO SCH (21:50)
[2017-06-15] MEDS: SODIUM CHLORIDE 0.9% 1,000 ML IV SCH (23:59)
[2017-06-16] MEDS: DEXTROSE 5% NACL 0.45% 1,000 ML IV SCH (01:07)
[2017-06-16 05:15] LABS: Basophils % 0.3 % (0.0-0.8); Eosinophils # 0.2 10*3/uL (0.0-0.87); Eosinophils % 4.3 % (0.00-10.9); Hematocrit 26.5 VOL% (35.7-47.0); Hemoglobin 8.4 GM/DL (12.0-16.0); Lymphocytes # 2.2 10*3/uL (1.4-4.0); Lymphocytes % 56.5 % (21.3-54.2); Mean Corpuscular HGB Conc 31.7 GM/DL (32-36); Mean Corpuscular Hemoglobin 30 PG (27-34); Mean Corpuscular Volume 94.6 FL (87-102); Mean Platelet Volume 10.4 FL (9.6-12.0); Monocytes # 0.4 10*3/uL (0.11-0.8); Monocytes % 9.1 % (1.7-12.7); Neutrophils # 1.2 10*3/uL (1.4-7.4); Neutrophils % 29.8 % (38.7-73.9); Platelet Count 180 T/CUMM (130-400); Red Cell Distribution Width 18.2 % (9.3-17.3)
[2017-06-16 05:44] LABS: Eosinophils 5 % (0-10); Giant Platelets Few; Hypochromasia 1+; Lymphocytes 62 % (20-55); Ovalocytes Slight; Platelet Estimate Normal; Segmented Neutrophils 30 % (50-85); Total Cells Counted 100
[2017-06-16 05:45] LABS: Atypical Lymphocytes Few
[2017-06-16 05:50] LABS: Albumin 2.7 G/DL (3.4-5.0); Bilirubin,Total 0.5 MG/DL (0.2-1.0); Calcium 9.7 MG/DL (8.5-10.1); Potassium 3.4 MMOL/L (3.5-5.1); Total Protein 4.9 G/DL (6.4-8.3)
[2017-06-16 05:56] LABS: Risk Ratio 3.03; Thyroid Stimulating Hormone 1.56 uIU/ml (0.358-3.74); VLDL CHOLESTEROL 21.8 MG/DL
[2017-06-16 06:13] LABS: Calcium 9.8 MG/DL (8.5-10.1); Magnesium 1.6 MG/DL (1.8-2.4); Osmolality,Calculated 286.8 MOS/KG (273-304); Potassium 3.5 MMOL/L (3.5-5.1)
[2017-06-16] MEDS ORDERED: diphenhydrAMINE CAP 25 MG CAPSULE PO ONE (07:00)
[2017-06-16] MEDS ORDERED: DIAZEPAM 5 MG TABLET PO ONE (07:00)
[2017-06-16] MEDS: SODIUM CHLORIDE 0.9% 1,000 ML IV SCH (07:05)
[2017-06-16] MEDS ORDERED: MEPERIDINE 25 MG/1 ML VIAL ONE (07:21)
[2017-06-16] MEDS ORDERED: MIDAZOLAM 2 MG/2 ML VIAL ONE (07:21)
[2017-06-16] MEDS ORDERED: LIDOCAINE 1% 20 ML VIAL ONE ×2 (07:21→07:23)
[2017-06-16] MEDS ORDERED: amLODIPine 10 MG TABLET PO SCH (09:00)
[2017-06-16] MEDS ORDERED: LISINOPRIL 20 MG TABLET PO SCH (09:00)
[2017-06-16] MEDS ORDERED: POTASSIUM CHLORIDE INJ 20 MEQ in SODIUM CHLORIDE 0.9% 1,000 ML IV SCH (09:16)
[2017-06-16] MEDS: CHOLECALCIFEROL 1,000 UNIT TABLET PO SCH (10:35)
[2017-06-16] MEDS: PANTOPRAZOLE 40 MG TABLET PO SCH (10:35)
[2017-06-16] MEDS: LEVOTHYROXINE 88 MCG TABLET PO SCH (10:35)
[2017-06-16] MEDS: POTASSIUM CHLORIDE 20 MEQ TABLET PO SCH (10:35)
[2017-06-16] MEDS: ASPIRIN CHEW 81 MG TABLET PO SCH (10:35)
[2017-06-16] MEDS: FUROSEMIDE 20 MG TABLET PO SCH (10:36)
[2017-06-16] MEDS: LISINOPRIL 10 MG TABLET PO SCH (10:36)
[2017-06-16] MEDS: CARVEDILOL 3.125 MG TABLET PO SCH ×2 (10:36→20:59)
[2017-06-16] MEDS: LACTATED RINGERS 1,000 ML IV SCH (11:04)
[2017-06-16] MEDS: SODIUM CHLOR 0.9% KCL 20 MEQ 20 MEQ/1,000 ML BAG IV SCH ×2 (11:30→16:43)
[2017-06-16] MEDS: POTASSIUM CHLORIDE RIDER 10 MEQ in PREMIX 1 EACH IV PRN ×2 (11:30→12:59)
[2017-06-16] MEDS: PRAVASTATIN 20 MG TABLET PO SCH (20:59)
[2017-06-17 05:18] LABS: Basophils % 0.2 % (0.0-0.8); Eosinophils # 0.2 10*3/uL (0.0-0.87); Eosinophils % 3.3 % (0.00-10.9); Hematocrit 28.8 VOL% (35.7-47.0); Hemoglobin 9.2 GM/DL (12.0-16.0); Immature Granulocytes % 0.6 %; Immature Granulocytes Absolute 0.03 #; Lymphocytes # 2.2 10*3/uL (1.4-4.0); Lymphocytes % 42.8 % (21.3-54.2); Mean Corpuscular HGB Conc 31.9 GM/DL (32-36); Mean Corpuscular Hemoglobin 30 PG (27-34); Mean Corpuscular Volume 94.1 FL (87-102); Mean Platelet Volume 9.9 FL (9.6-12.0); Monocytes # 0.5 10*3/uL (0.11-0.8); Neutrophils # 2.3 10*3/uL (1.4-7.4); Neutrophils % 44.1 % (38.7-73.9); Platelet Count 186 T/CUMM (130-400); Red Blood Count 3.06 MC/CUMM (3.8-5.5); Red Cell Distribution Width 17.9 % (9.3-17.3); White Blood Count 5.2 T/CUMM (4-12)
[2017-06-17 05:51] LABS: Calcium 10.2 MG/DL (8.5-10.1); Potassium 3.6 MMOL/L (3.5-5.1)
[2017-06-17 05:57] LABS: Albumin 2.9 G/DL (3.4-5.0); Bilirubin,Total 0.5 MG/DL (0.2-1.0); Potassium 3.6 MMOL/L (3.5-5.1); Total Protein 5.4 G/DL (6.4-8.3)
[2017-06-17] MEDS ORDERED: FAMOTIDINE 20 MG TABLET PO ONE (06:00)
[2017-06-17] MEDS ORDERED: ceFAZolin 2,000 MG in PREMIX 1 EACH IV ONE (06:00)
[2017-06-17] MEDS ORDERED: DIAZEPAM 5 MG TABLET PO ONE (06:00)
[2017-06-17 06:01] LABS: PT Patient Result 10.7 SECS; Partial Thromboplastin Time 26.5 SECS (0-40)
[2017-06-17] MEDS: LISINOPRIL 10 MG TABLET PO SCH (08:16)
[2017-06-17] MEDS ORDERED: LIDOCAINE 2%/EPI 20 ML VIAL ONE (08:21)
[2017-06-17] MEDS: PANTOPRAZOLE 40 MG TABLET PO SCH (08:53)
[2017-06-17] MEDS: FUROSEMIDE 20 MG TABLET PO SCH (08:53)
[2017-06-17] MEDS: LEVOTHYROXINE 88 MCG TABLET PO SCH (08:53)
[2017-06-17] MEDS: POTASSIUM CHLORIDE 20 MEQ TABLET PO SCH (08:53)
[2017-06-17] MEDS: ASPIRIN CHEW 81 MG TABLET PO SCH (08:53)
[2017-06-17] MEDS: CARVEDILOL 3.125 MG TABLET PO SCH ×2 (08:53→21:57)
[2017-06-17] MEDS: CHOLECALCIFEROL 1,000 UNIT TABLET PO SCH (08:53)
[2017-06-17] MEDS ORDERED: ONDANSETRON 4 MG/2 ML VIAL IV PRN (11:36)
[2017-06-17] MEDS ORDERED: HYDROmorphone 2 MG/1 ML VIAL IV PRN (11:36)
[2017-06-17] MEDS ORDERED: ePHEDrine 50 MG/ML AMP ONE (11:59)
[2017-06-17] MEDS ORDERED: MIDAZOLAM 2 MG/2 ML VIAL ONE (11:59)
[2017-06-17] MEDS ORDERED: PROPOFOL 200 MG/20 ML VIAL IV ONE (12:01)
[2017-06-17] MEDS ORDERED: SEVOFLURANE 1 UNIT/15 MINUTE INH ONE (12:01)
[2017-06-17] MEDS ORDERED: ONDANSETRON 4 MG/2 ML VIAL ONE (12:02)
[2017-06-17] MEDS ORDERED: ACETAMINOPHEN 1,000 MG/100 ML VIAL IV ONE (12:02)
[2017-06-17] MEDS ORDERED: GLYCOPYRROLATE 0.4 MG/2 ML VIAL ONE (12:02)
[2017-06-17] MEDS ORDERED: fentaNYL 100 MCG/2 ML VIAL ONE (12:02)
[2017-06-17] MEDS ORDERED: ROCURONIUM 100 MG/10 ML VIAL IV ONE (12:02)
[2017-06-17] MEDS ORDERED: NEOSTIGMINE 10 MG/10 ML VIAL ONE (12:02)
[2017-06-17] MEDS ORDERED: KETOROLAC 30 MG/1 ML VIAL ONE (12:02)
[2017-06-17] MEDS ORDERED: METOPROLOL TARTRATE 5 MG/5 ML VIAL IV ONE (12:03)
[2017-06-17] MEDS: DEXTROSE 5% NACL 0.45% 1,000 ML IV SCH ×2 (12:35→23:00)
[2017-06-17] MEDS: ceFAZolin 2,000 MG in PREMIX 1 EACH IV SCH ×2 (16:40→23:00)
[2017-06-17 17:28] LABS: Hematocrit 30.6 VOL% (35.7-47.0); Hemoglobin 9.5 GM/DL (12.0-16.0)
[2017-06-17] MEDS: oxyCODONE/ACETAMINOPHEN 5-325 MG TABLET PO PRN (21:56)
[2017-06-17] MEDS: PRAVASTATIN 20 MG TABLET PO SCH (21:57)
[2017-06-18 06:15] LABS: Basophils % 0.2 % (0.0-0.8); Eosinophils # 0.1 10*3/uL (0.0-0.87); Hematocrit 22.1 VOL% (35.7-47.0); Immature Granulocytes % 0.2 %; Immature Granulocytes Absolute 0.01 #; Lymphocytes # 1.5 10*3/uL (1.4-4.0); Lymphocytes % 33.2 % (21.3-54.2); Mean Corpuscular HGB Conc 31.7 GM/DL (32-36); Mean Corpuscular Hemoglobin 29 PG (27-34); Mean Corpuscular Volume 92.9 FL (87-102); Mean Platelet Volume 10.2 FL (9.6-12.0); Monocytes # 0.4 10*3/uL (0.11-0.8); Monocytes % 8.4 % (1.7-12.7); Neutrophils # 2.5 10*3/uL (1.4-7.4); Platelet Count 154 T/CUMM (130-400); Red Blood Count 2.38 MC/CUMM (3.8-5.5); White Blood Count 4.4 T/CUMM (4-12)
[2017-06-18 07:02] LABS: Osmolality,Calculated 284.5 MOS/KG (273-304); Potassium 3.4 MMOL/L (3.5-5.1)
[2017-06-18] MEDS: LISINOPRIL 2.5 MG TABLET PO SCH (09:06)
[2017-06-18] MEDS: PANTOPRAZOLE 40 MG TABLET PO SCH (09:06)
[2017-06-18] MEDS: FUROSEMIDE 20 MG TABLET PO SCH (09:06)
[2017-06-18] MEDS: CHOLECALCIFEROL 1,000 UNIT TABLET PO SCH (09:07)
[2017-06-18] MEDS: CARVEDILOL 3.125 MG TABLET PO SCH ×2 (09:07→21:12)
[2017-06-18] MEDS: LEVOTHYROXINE 88 MCG TABLET PO SCH (09:07)
[2017-06-18] MEDS: ceFAZolin 2,000 MG in PREMIX 1 EACH IV SCH ×3 (09:07→23:44)
[2017-06-18] MEDS: POTASSIUM CHLORIDE 20 MEQ TABLET PO SCH (09:07)
[2017-06-18] MEDS: ENOXAPARIN 30 MG/0.3 ML SYRINGE SUBCUT SCH (09:07)
[2017-06-18] MEDS: ASPIRIN CHEW 81 MG TABLET PO SCH (09:07)
[2017-06-18] MEDS: DEXTROSE 5% NACL 0.45% 1,000 ML IV SCH ×2 (09:08→17:01)
[2017-06-18] MEDS ORDERED: SODIUM CHLORIDE 0.9% 1,000 ML IV PRN (09:56)
[2017-06-18] MEDS ORDERED: POTASSIUM CHLORIDE 20 MEQ PACK PO ONE (12:55)
[2017-06-18] MEDS: PRAVASTATIN 20 MG TABLET PO SCH (21:12)
[2017-06-18] MEDS: BISACODYL 5 MG TABLET PO PRN (23:48)
[2017-06-19] MEDS: DEXTROSE 5% NACL 0.45% 1,000 ML IV SCH ×2 (04:28→15:18)
[2017-06-19 05:13] LABS: Basophils % 0.2 % (0.0-0.8); Eosinophils # 0.1 10*3/uL (0.0-0.87); Eosinophils % 1.7 % (0.00-10.9); Hematocrit 29.3 VOL% (35.7-47.0); Hemoglobin 9.6 GM/DL (12.0-16.0); Immature Granulocytes % 0.3 %; Immature Granulocytes Absolute 0.02 #; Lymphocytes # 1.8 10*3/uL (1.4-4.0); Lymphocytes % 30.9 % (21.3-54.2); Mean Corpuscular HGB Conc 32.8 GM/DL (32-36); Mean Corpuscular Hemoglobin 30 PG (27-34); Mean Platelet Volume 10.6 FL (9.6-12.0); Monocytes # 0.6 10*3/uL (0.11-0.8); Monocytes % 9.2 % (1.7-12.7); Neutrophils # 3.4 10*3/uL (1.4-7.4); Neutrophils % 57.7 % (38.7-73.9); Platelet Count 167 T/CUMM (130-400); Red Blood Count 3.22 MC/CUMM (3.8-5.5); Red Cell Distribution Width 18.1 % (9.3-17.3)
[2017-06-19] MEDS: ceFAZolin 2,000 MG in PREMIX 1 EACH IV SCH ×2 (08:58→15:18)
[2017-06-19] MEDS: LISINOPRIL 2.5 MG TABLET PO SCH (08:58)
[2017-06-19] MEDS: CHOLECALCIFEROL 1,000 UNIT TABLET PO SCH (08:58)
[2017-06-19] MEDS: PANTOPRAZOLE 40 MG TABLET PO SCH (08:58)
[2017-06-19] MEDS: LEVOTHYROXINE 88 MCG TABLET PO SCH (08:59)
[2017-06-19] MEDS: ENOXAPARIN 30 MG/0.3 ML SYRINGE SUBCUT SCH (08:59)
[2017-06-19] MEDS: POTASSIUM CHLORIDE 20 MEQ TABLET PO SCH (08:59)
[2017-06-19] MEDS: ASPIRIN CHEW 81 MG TABLET PO SCH (08:59)
[2017-06-19] MEDS: FUROSEMIDE 20 MG TABLET PO SCH (08:59)
[2017-06-19] MEDS: CARVEDILOL 3.125 MG TABLET PO SCH ×2 (08:59→20:58)
[2017-06-19] MEDS: BISACODYL 5 MG TABLET PO PRN (09:03)
[2017-06-19] MEDS: PRAVASTATIN 20 MG TABLET PO SCH (20:58)
[2017-06-20] MEDS: DEXTROSE 5% NACL 0.45% 1,000 ML IV SCH ×3 (00:27→11:35)
[2017-06-20] MEDS: ceFAZolin 2,000 MG in PREMIX 1 EACH IV SCH (00:27)
[2017-06-20 05:27] LABS: Basophils % 0.2 % (0.0-0.8); Eosinophils # 0.1 10*3/uL (0.0-0.87); Eosinophils % 2.1 % (0.00-10.9); Hemoglobin 9.4 GM/DL (12.0-16.0); Immature Granulocytes % 0.3 %; Immature Granulocytes Absolute 0.02 #; Lymphocytes # 1.7 10*3/uL (1.4-4.0); Lymphocytes % 29.1 % (21.3-54.2); Mean Corpuscular HGB Conc 33.6 GM/DL (32-36); Mean Corpuscular Hemoglobin 30 PG (27-34); Mean Corpuscular Volume 90.6 FL (87-102); Mean Platelet Volume 10.4 FL (9.6-12.0); Monocytes # 0.6 10*3/uL (0.11-0.8); Monocytes % 9.6 % (1.7-12.7); Neutrophils # 3.4 10*3/uL (1.4-7.4); Neutrophils % 58.7 % (38.7-73.9); Platelet Count 167 T/CUMM (130-400); Red Blood Count 3.09 MC/CUMM (3.8-5.5); Red Cell Distribution Width 17.7 % (9.3-17.3); White Blood Count 5.7 T/CUMM (4-12)
[2017-06-20 06:09] LABS: Calcium 9.8 MG/DL (8.5-10.1); Magnesium 1.6 MG/DL (1.8-2.4); Potassium 3.4 MMOL/L (3.5-5.1)
[2017-06-20 07:28] VITALS: BP 144/83
[2017-06-20] MEDS ORDERED: LISINOPRIL 10 MG TABLET PO SCH (09:00)
[2017-06-20] MEDS ORDERED: CARVEDILOL 6.25 MG TABLET PO SCH (09:00)
[2017-06-20] MEDS: LEVOTHYROXINE 88 MCG TABLET PO SCH (09:28)
[2017-06-20] MEDS: ENOXAPARIN 30 MG/0.3 ML SYRINGE SUBCUT SCH (09:28)
[2017-06-20] MEDS: POTASSIUM CHLORIDE 20 MEQ TABLET PO SCH (09:28)
[2017-06-20] MEDS: FUROSEMIDE 20 MG TABLET PO SCH (09:28)
[2017-06-20] MEDS: PANTOPRAZOLE 40 MG TABLET PO SCH (09:28)
[2017-06-20] MEDS: CHOLECALCIFEROL 1,000 UNIT TABLET PO SCH (09:29)
[2017-06-20] MEDS: ASPIRIN CHEW 81 MG TABLET PO SCH (09:29)
== END 2017-06-20 11:39 | disposition home health service (06) | DRG 582 ==
LOC: N.OR 05:57 → N.SDSINP 05:59 → N.3E 09:07
PROVIDERS: ADMIT Specialist; ATTEND Specialist
PROC: CLCCHCL (ICD-10-PCS; 2017-06-16 07:45)

== ENCOUNTER 2022-05-27 11:07 | Observation (INO) ==
[2022-05-27] MEDS ORDERED: ASPIRIN 325 MG TABLET PO STA (11:52)
[2022-05-27] MEDS ORDERED: LABETALOL 20 MG/4 ML SYRINGE IV STA (12:01)
[2022-05-27 12:24] LABS: Basophils % 0.2 % (0.0-0.8); Eosinophils # 0.1 10*3/uL (0.0-0.87); Eosinophils % 2.4 % (0.00-10.9); Hematocrit 39.9 VOL% (35.7-47.0); Hemoglobin 12.2 GM/DL (12.0-16.0); Immature Granulocytes % 0.2 %; Immature Granulocytes Absolute 0.01 #; Lymphocytes # 1.9 10*3/uL (1.4-4.0); Lymphocytes % 42.1 % (21.3-54.2); Mean Corpuscular HGB Conc 30.6 GM/DL (32-36); Mean Corpuscular Volume 89.3 FL (87-102); Mean Platelet Volume 10.6 FL (9.6-12.0); Monocytes # 0.4 10*3/uL (0.11-0.8); Monocytes % 9.5 % (1.7-12.7); Neutrophils % 45.6 % (38.7-73.9); Platelet Count 208 T/CUMM (130-400); Red Blood Count 4.47 MC/CUMM (3.8-5.5); Red Cell Distribution Width 14.7 % (9.3-17.3); White Blood Count 4.6 T/CUMM (4-12)
[2022-05-27 12:40] LABS: INR 0.9; PT Patient Result 10.2 SECS (10.1-12.1); Partial Thromboplastin Time 24.1 SECS (23.7-32.9)
[2022-05-27 12:47] LABS: Alanine Aminotransferase 22 U/L (13-56); Albumin 3.5 G/DL (3.4-5.0); Alkaline Phosphatase 82 U/L (45-117); Aspartate Amino Transferase 15 U/L (0-37); Bilirubin,Total < 0.39 MG/DL (0.20-1.00); Blood Urea Nitrogen 20 MG/DL (7-18); Calcium 11.1 MG/DL (8.5-10.1); Carbon Dioxide 29 MMOL/L (21-32); Chloride 111 MMOL/L (98-107); Glucose 98 MG/DL (74-106); Sodium 143 MMOL/L (136-145)
[2022-05-27 12:50] LABS: RBC,Urine <1 /HPF (0-4); Squamous Epithelial Cell,Urine Occasional /HPF (0-10)
[2022-05-27 12:53] LABS: Urine Appearance Clear (Clear); Urine Color Yellow (Yellow)
[2022-05-27 12:54] LABS: Bilirubin,Urine Negative (Negative); Blood, Urine Negative (Negative); Glucose,Urine (UA) Negative (Negative); Ketones,Urine Negative (Negative); Nitrite,Urine Negative (Negative); Protein,Urine Negative (Negative); Urine Specific Gravity 1.025 (1.001-1.035); Urine Urobilinogen 0.2 eU/dL (<2.0)
[2022-05-27] MEDS ORDERED: hydrALAZINE 20 MG/1 ML VIAL IV STA (12:58)
[2022-05-27] MEDS ORDERED: ACETAMINOPHEN 325 MG TABLET PO PRN (13:47)
[2022-05-27] MEDS ORDERED: MORPHINE 2 MG/1 ML SYRINGE IV PRN (13:47)
[2022-05-27] MEDS ORDERED: ALBUTEROL 2.5 MG/3 ML NEB RESP TX PRN (13:47)
[2022-05-27] MEDS ORDERED: SIMETHICONE CHEW 125 MG TABLET PO PRN (13:47)
[2022-05-27] MEDS ORDERED: hydrALAZINE 20 MG/1 ML VIAL IV PRN (13:47)
[2022-05-27] MEDS ORDERED: CALCIUM CARBONATE CHEW 500 MG TABLET PO PRN (13:47)
[2022-05-27] MEDS ORDERED: ALUMINUM/MAGNES/SIMETH MAX STR 30 ML UDCUP PO PRN (13:47)
[2022-05-27] MEDS ORDERED: LACTULOSE 20 GM/30 ML UDCUP PO PRN (13:47)
[2022-05-27] MEDS ORDERED: NITROGLYCERIN SL 0.4 MG TABLET SL PRN (13:53)
[2022-05-27 14:26] LABS: Barbiturates Screen,Urine Negative (Negative); Benzodiazepines Screen,Urine Negative (Negative); Cannabinoid Screen,Urine Negative (Negative); Opiate Screen,Urine Negative (Negative); Phencyclidine Screen,Urine Negative (Negative)
[2022-05-27] MEDS ORDERED: ENOXAPARIN 40 MG/0.4 ML SYRINGE SUBCUT SCH (15:00)
[2022-05-27] MEDS ORDERED: carvediloL 3.125 MG TABLET PO STA (15:15)
[2022-05-27] MEDS ORDERED: hydrALAZINE 25 MG TABLET PO SCH (21:00)
[2022-05-27] MEDS: DOCUSATE SODIUM 100 MG CAPSULE PO SCH (21:41)
[2022-05-27] MEDS: carvediloL 6.25 MG TABLET PO SCH (21:41)
[2022-05-28 05:26] LABS: Basophils % 0.4 % (0.0-0.8); Eosinophils # 0.1 10*3/uL (0.0-0.87); Eosinophils % 2.7 % (0.00-10.9); Hematocrit 36.2 VOL% (35.7-47.0); Hemoglobin 11.4 GM/DL (12.0-16.0); Immature Granulocytes % 0.2 %; Immature Granulocytes Absolute 0.01 #; Lymphocytes # 1.7 10*3/uL (1.4-4.0); Lymphocytes % 34.8 % (21.3-54.2); Mean Corpuscular HGB Conc 31.5 GM/DL (32-36); Mean Corpuscular Volume 89.8 FL (87-102); Mean Platelet Volume 11.2 FL (9.6-12.0); Monocytes # 0.4 10*3/uL (0.11-0.8); Neutrophils % 52.9 % (38.7-73.9); Platelet Count 174 T/CUMM (130-400); Red Blood Count 4.03 MC/CUMM (3.8-5.5); Red Cell Distribution Width 14.8 % (9.3-17.3); White Blood Count 4.9 T/CUMM (4-12)
[2022-05-28 06:07] LABS: Alanine Aminotransferase 19 U/L (13-56); Alkaline Phosphatase 57 U/L (45-117); Aspartate Amino Transferase 14 U/L (0-37); Bilirubin,Total < 0.39 MG/DL (0.20-1.00); Blood Urea Nitrogen 16 MG/DL (7-18); Calcium 10.7 MG/DL (8.5-10.1); Carbon Dioxide 24 MMOL/L (21-32); Chloride 114 MMOL/L (98-107); Cholesterol 192 MG/DL (50-200); Glucose 87 MG/DL (74-106); HDL Cholesterol 51 MG/DL (40-60); Risk Ratio 3.76; Sodium 143 MMOL/L (136-145); Total Protein 6.1 G/DL (6.4-8.2); Triglycerides 120 MG/DL (2-150)
[2022-05-28] MEDS ORDERED: LEVOTHYROXINE 50 MCG TABLET PO SCH (06:30)
[2022-05-28 08:35] VITALS: BP 152/70
[2022-05-28] MEDS ORDERED: OLMESARTAN 40 MG PO SCH (09:00)
[2022-05-28] MEDS ORDERED: ASPIRIN CHEW 81 MG TABLET PO SCH (09:00)
[2022-05-28] MEDS ORDERED: FUROSEMIDE 20 MG TABLET PO SCH (09:00)
[2022-05-28] MEDS ORDERED: ASPIRIN EC 81 MG TABLET PO SCH (09:00)
[2022-05-28] MEDS ORDERED: PANTOPRAZOLE 40 MG TABLET PO SCH (09:00)
[2022-05-28] MEDS ORDERED: CHOLECALCIFEROL 1,000 UNIT TABLET PO SCH (09:00)
[2022-05-28] MEDS ORDERED: POTASSIUM CHLORIDE 10 MEQ TABLET PO SCH (09:00)
[2022-05-28] MEDS: DOCUSATE SODIUM 100 MG CAPSULE PO SCH (09:19)
[2022-05-28] MEDS: carvediloL 6.25 MG TABLET PO SCH (09:19)
[2022-05-28] MEDS ORDERED: hydrALAZINE 25 MG TABLET PO SCH (21:00)
[2022-05-28] MEDS ORDERED: ATORVASTATIN 40 MG TABLET PO SCH (21:00)
[2022-05-29] MEDS ORDERED: CHLORTHALIDONE 25 MG TABLET PO SCH (09:00)
[2022-05-29] MEDS ORDERED: MAGNESIUM OXIDE 400 MG TABLET PO SCH (09:00)
== END 2022-05-28 12:31 | disposition home or self-care (01) ==
LOC: N.ED 11:07 → N.EDINP 11:07 → N.TELES 17:17
PROVIDERS: ADMIT Internal Medicine; ATTEND Internal Medicine